=== PATIENT | male | born 1990 | race African-American/Black ===

== ENCOUNTER 2021-01-07 16:09 | Emergency (ER) | payer SELFPAY ==
[~2021-01-07] VITALS: Ht 170.2 cm; Wt 77.3 kg
[2021-01-07] MEDS ORDERED: LIDOCAINE 5% TRANSDERMAL PATCH TD ONE (16:45)
[2021-01-07] MEDS ORDERED: IBUPROFEN 600 MG TABLET PO ONE (16:45)
[2021-01-07] MEDS ORDERED: ACETAMINOPHEN 500 MG TABLET PO ONE (16:45)
[2021-01-07 17:06] LABS: BASOPHILS % (AUTO) 0.4 % (0.0-2.0); EOSINOPHILS % (AUTO) 1.5 % (1.0-6.0); HEMATOCRIT 42.3 % (41-53); HEMOGLOBIN 14.8 g/dL (13.5-17.5); LYMPHOCYTES # (AUTO) 1.4 K/uL (1.0-4.8); LYMPHOCYTES % (AUTO) 23.6 % (22.0-44.0); MEAN CORPUSCULAR HEMOGLOBIN 29.8 pg (26.0-34.0); MEAN CORPUSCULAR HGB CONC 35.1 G/dL (31.0-37.0); MEAN CORPUSCULAR VOLUME 85 fL (80-100); MONOCYTES # (AUTO) 0.5 K/uL (0.1-1.0); MONOCYTES % (AUTO) 8.8 % (2.0-9.0); NEUTROPHILS # (AUTO) 3.8 K/uL (1.8-7.7); NEUTROPHILS % (AUTO) 65.7 % (40.0-70.0); PLATELET COUNT (AUTO) 196 K/uL (150-450); RED BLOOD CELL COUNT(AUTO) 4.98 MIL/uL (4.50-5.90); RED CELL DISTRIBUTION WIDTH 12.4 % (11.5-14.5)
[2021-01-07 17:11] LABS: ANION GAP 8 mmol/L (8-16); CALCIUM, TOTAL 8.9 mg/dL (8.8-10.5); CARBON DIOXIDE 27 mmol/L (22-29); CHLORIDE 108 mmol/L (98-107); CREATININE 0.95 mg/dL (0.60-1.30); GLOMERULAR FILTR. RATE CALC > 60 mL/min (>60); GLUCOSE,RANDOM 108 mg/dL (70-110); POTASSIUM 3.9 mmol/L (3.5-5.1); SODIUM SERUM 143 mmol/L (136-145); UREA NITROGEN, BLOOD 13 mg/dL (7-18)
[2021-01-07 17:30] LABS: ALANINE AMINOTRANSFERASE 36 U/L (12-78); ALKALINE PHOSPHATASE 61 U/L (46-116); ASPARTATE AMINOTRANSFERASE 23 U/L (15-37); BILIRUBIN,TOTAL 0.5 mg/dL (0.1-1.0); CREATINE KINASE, TOTAL ONLY 242 U/L (39-308); TOTAL PROTEIN, SERUM 7.7 g/dL (6.4-8.2)
[2021-01-07 17:34] VITALS: BP 123/75
== END 2021-01-07 18:29 | disposition home or self-care (01) ==
LOC: EMS 16:09
DX: S29.011A Strain of muscle and tendon of front wall of thorax, initial encounter (principal); X50.0XXA Overexertion from strenuous movement or load, initial encounter; X50.9XXA Other and unspecified overexertion or strenuous movements or postures, initial encounter; Y93.89 Activity, other specified; Y92.89 Other specified places as the place of occurrence of the external cause; Y99.8 Other external cause status
CPT/HCPCS: 36415; 71045; 80053; 82550; 84484; 85025; 85379; 93005; 99285; G0238

== ENCOUNTER 2023-12-27 21:55 | Emergency (ER) | payer MEDICAID ==
[~2023-12-27] VITALS: Ht 177.8 cm; Wt 83.2 kg
[2023-12-27 21:58] VITALS: BP 139/86; PULSE 86; RESP 20; TEMP 98; O2SAT 95
[2023-12-28] MEDS ORDERED: ACETAMINOPHEN 325 MG TABLET PO ONE (00:15)
[2023-12-28] MEDS ORDERED: KETOROLAC TROMETHAMINE 30 MG/ML VIAL IM ONE (00:15)
[2023-12-28] MEDS ORDERED: DIAZEPAM 5 MG TABLET PO ONE (00:15)
[2023-12-28] MEDS ORDERED: LIDOCAINE 5% TRANSDERMAL PATCH TD ONE (00:15)
== END 2023-12-28 00:31 | disposition home or self-care (01) ==
LOC: EMS 21:55
DX: M25.511 Pain in right shoulder (principal)
CPT/HCPCS: 99281; Z7502